=== PATIENT | male | born 1995 | race Two or more races ===

== ENCOUNTER → 2018-08-28 | Outpatient (REF) | payer OTHER | LOC: M SFHCLERA 16:33 | PROVIDERS: ATTEND Nurse Practitioner Family | DX: J04.0 Acute laryngitis (principal) ==

== ENCOUNTER → 2019-08-24 | Outpatient (CLI) | payer OTHER ==
--- NOTE | 2019-08-24 13:32 | REP ---
Clinical: Cough and shortness of breath . Comparison: 03/07/2016 . Technique: PA and lateral. Findings: The mediastinum and cardiac silhouette are normal. The lung flynn are clear and without acute consolidation, effusion, or pneumothorax. The skeletal structures are intact and normal. Impression: 1. No acute cardiopulmonary process. Electronically Signed by James Mejia MD 08/24/2019 01:24 P
== END ==
LOC: M RAD 13:10
PROVIDERS: ATTEND Physician Assistant Medical
DX: R06.02 Shortness of breath (principal); R05 Cough

== ENCOUNTER 2019-12-25 11:36 | Emergency (ER) | payer OTHER ==
[~2019-12-25] VITALS: Ht 172.7 cm; Wt 84.8 kg
[2019-12-25 14:20] VITALS: BP 134/84
--- NOTE | 2019-12-25 17:13 | REP ---
Head CT without contrast: History: Head trauma. Blurred vision. Comparison study: October 23, 2012. CT findings: Bone window settings demonstrate an intact bony calvarium. There is no evidence of skull fracture or incidental bony calvarial lesion. The visualized paranasal sinuses appear clear. No intraorbital abnormality is seen. On soft tissue window setting images; the lateral, third, and fourth ventricles are normal in size and position. Winston-white differentiation pattern is normal above and below the tentorium. There are is no evidence of intracranial hemorrhage. No mass, edema, infarction, or midline shift is seen. No extra-axial fluid collection is appreciated. Impression: Negative noncontrast head CT. Electronically Signed by Rachid Nieto MD 12/25/2019 05:02 P
== END 2019-12-25 14:22 | disposition home or self-care (01) ==
LOC: M ED 11:36
DX: S00.83XA Contusion of other part of head, initial encounter (principal); V86.56XA Driver of dirt bike or motor/cross bike injured in nontraffic accident, initial encounter; Y92.9 Unspecified place or not applicable